=== PATIENT | female | born 1980 | race Caucasian/White ===

== ENCOUNTER 2023-10-18 09:58 | Inpatient (IN) | payer OTHER ==
[~2023-10-18] VITALS: Ht 167.6 cm; Wt 115.0 kg
[2023-10-18] MEDS ORDERED: ESSETAB4 PO (10:15)
[2023-10-18] MEDS ORDERED: MORPHINE 4 MG/ML 1ML VIAL IV ONE (10:30)
[2023-10-18] MEDS ORDERED: ONDANSETRON 4MG 2ML VIAL IV ONE (10:30)
[2023-10-18] MEDS: MORPHINE 4 MG/ML 1ML VIAL IV PRN ×2 (12:03→13:00)
[2023-10-18 12:59] LABS: BASO % 0.2 % (0.0-1.0); EOS % 0.1 % (0.0-3.0); HEMOGLOBIN 12.6 g/dl (12.0-15.5); LYMPH # 1.1 10^3/uL (1.5-5.0); LYMPH % 7.3 % (24.0-44.0); MEAN CORPUSCULAR HEMOGLOBIN 29.8 pg (27.0-33.0); MEAN CORPUSCULAR HGB CONC 34.1 g/dl (32.0-36.5); MEAN CORPUSCULAR VOLUME 87.5 fl (80.0-96.0); MONO # 0.7 10^3/uL (0.0-0.8); MONO % 4.3 % (2.0-8.0); NEUTROPHILS # 13.2 10^3/uL (1.5-8.5); NEUTROPHILS % 87.8 % (36.0-66.0); PLATELET COUNT, AUTOMATED 360 10^3/uL (150-450); RED BLOOD COUNT 4.23 10^6/uL (4.00-5.40)
[2023-10-18] MEDS ORDERED: MED REC IN PROGRESS XX SCH (13:15)
[2023-10-18] MEDS ORDERED: HOME MED LIST COMPLETE! XX SCH (13:15)
[2023-10-18] MEDS ORDERED: fentaNYL 100 MCG/2 ML INJECTION IV PRN ×2 (13:20→18:10)
[2023-10-18] MEDS ORDERED: HYDROMORPHONE HCL 0.5 MG/ 0.5 ML SYRINGE IV PRN (13:20)
[2023-10-18] MEDS ORDERED: ONDANSETRON 4MG 2ML VIAL IV PRN ×2 (13:20→18:10)
[2023-10-18] MEDS ORDERED: oxyCODONE 5MG TAB PO PRN (13:20)
[2023-10-18] MEDS ORDERED: LR 1,000 ML IV SCH ×3 (13:20→18:10)
[2023-10-18 13:35] LABS: BLOOD UREA NITROGEN 14 MG/DL (9-23); CALCIUM LEVEL 8.4 MG/DL (8.5-10.1); CARBON DIOXIDE LEVEL 28 MMOL/L (20-31); CHLORIDE LEVEL 106 MMOL/L (98-107); CREATININE FOR GFR 0.62 MG/DL (0.55-1.30); GLOMERULAR FILTRATION RATE > 60.0 (>58); GLUCOSE, FASTING 116 MG/DL (60-100); POTASSIUM SERUM 4.1 MMOL/L (3.5-5.1); SODIUM LEVEL 138 MMOL/L (136-145)
[2023-10-18 13:53] LABS: HCG, SERUM QUALITATIVE NEGATIVE (NEGATIVE)
[2023-10-18] MEDS ORDERED: MAALOX 30 ML SUSP *UDC PO PRN (14:40)
[2023-10-18] MEDS ORDERED: MOM 30ML SUSPENSION UDC PO PRN (14:40)
[2023-10-18] MEDS ORDERED: LIDOCAINE 2% 100MG/5ML SDV (FOR ANES.) As Ordered ONE (17:15)
[2023-10-18] MEDS ORDERED: MIDAZOLAM INJ 2MG/2ML VIAL As Ordered ONE (17:15)
[2023-10-18] MEDS ORDERED: fentaNYL 100 MCG/2 ML INJECTION As Ordered ONE (17:15)
[2023-10-18] MEDS ORDERED: propofoL 200 MG/20 ML VIAL As Ordered ONE (17:15)
[2023-10-18] MEDS ORDERED: ceFAZolin 2 GM/D5W 50 ML IV BAG As Ordered ONE (17:16)
[2023-10-18] MEDS ORDERED: ACETAMINOPHEN 1000MG 100ML IV BAG As Ordered ONE (17:22)
[2023-10-18] MEDS ORDERED: ONDANSETRON 4MG 2ML VIAL As Ordered ONE (17:32)
[2023-10-18] MEDS ORDERED: HYDROmorphone HCL 2MG/ML 1ML VIAL As Ordered ONE (17:39)
[2023-10-18] MEDS ORDERED: PHENYLephrine 500MCG 5ML (100MCG/ML) SYRINGE As Ordered ONE (17:45)
[2023-10-18] MEDS ORDERED: METOCLOPRAMIDE INJ 10MG/2ML VIAL IV PRN (18:10)
[2023-10-18] MEDS ORDERED: METOCLOPRAMIDE INJ 10MG/2ML VIAL As Ordered ONE (18:30)
[2023-10-18] MEDS: oxyCODONE 5MG TAB PO PRN ×2 (19:08→19:40)
[2023-10-18] MEDS: HYDROMORPHONE HCL 0.5 MG/ 0.5 ML SYRINGE IV PRN ×3 (19:08→19:41)
[2023-10-18 19:48] VITALS: BP 141/85; TEMP 98.1; O2SAT 96
[2023-10-18 20:30] VITALS: BP 116/68; TEMP 97.5; O2SAT 96
[2023-10-18 21:00] VITALS: BP 124/71; TEMP 97.7; O2SAT 97
[2023-10-18 22:00] VITALS: BP 121/72; TEMP 97.3; O2SAT 96
[2023-10-18 23:00] VITALS: BP 121/72; TEMP 97.5; O2SAT 97
[2023-10-19] VITALS (7 sets, daily range): BP systolic 110–126; BP diastolic 62–81; TEMP 97.5–98.8; O2SAT 95–99
[2023-10-19] MEDS ORDERED: PERCOCET 5MG/325MG TAB PO PRN (01:30)
[2023-10-19] MEDS: PERCOCET 5MG/325MG TAB PO PRN ×3 (02:08→14:18)
[2023-10-19] MEDS: ceFAZolin SOD 2 GM in IV 1 EA IV SCH ×3 (02:08→16:45)
[2023-10-19 07:07] LABS: HEMOGLOBIN 12.6 g/dl (12.0-15.5); MEAN CORPUSCULAR HEMOGLOBIN 29.4 pg (27.0-33.0); MEAN CORPUSCULAR HGB CONC 33.2 g/dl (32.0-36.5); MEAN CORPUSCULAR VOLUME 88.8 fl (80.0-96.0); PLATELET COUNT, AUTOMATED 420 10^3/uL (150-450); RED BLOOD COUNT 4.28 10^6/uL (4.00-5.40); WHITE BLOOD COUNT 13.4 10^3/uL (4.0-10.0)
[2023-10-19 07:29] LABS: BLOOD UREA NITROGEN 14 MG/DL (9-23); CALCIUM LEVEL 8.4 MG/DL (8.5-10.1); CARBON DIOXIDE LEVEL 26 MMOL/L (20-31); CHLORIDE LEVEL 103 MMOL/L (98-107); CREATININE FOR GFR 0.66 MG/DL (0.55-1.30); GLOMERULAR FILTRATION RATE > 60.0 (>58); GLUCOSE, FASTING 119 MG/DL (60-100); MAGNESIUM LEVEL 1.9 MG/DL (1.8-2.4); POTASSIUM SERUM 4.5 MMOL/L (3.5-5.1); SODIUM LEVEL 137 MMOL/L (136-145)
[2023-10-19] MEDS: ENOXAPARIN 40MG/0.4ML SYRINGE (J1650 PER 10MG) SC SCH ×2 (11:38→21:19)
[2023-10-19] MEDS: ACETAMINOPHEN TAB 650MG DOSE (2X325MG) PO PRN ×3 (11:49→21:19)
[2023-10-20] MEDS: ACETAMINOPHEN TAB 650MG DOSE (2X325MG) PO PRN ×3 (03:23→13:15)
[2023-10-20 06:11] VITALS: BP 116/70; TEMP 97.5; O2SAT 95
[2023-10-20] MEDS: ENOXAPARIN 40MG/0.4ML SYRINGE (J1650 PER 10MG) SC SCH (08:35)
[2023-10-20] MEDS ORDERED: ACET1TAB55 PO (13:01)
== END 2023-10-20 14:45 | disposition home or self-care (01) | DRG 313 ==
LOC: EDBD 09:58 → M ED 09:58 → M ED INP 14:39 → ENRESERV 15:11 → M MS5PR 19:28
PROVIDERS: ADMIT Student in an Organized Health Care Education/Training Program; ATTEND Family Medicine
PROC: 0QSH06Z Reposition Left Tibia with Intramedullary Internal Fixation Device, Open Approach (ICD-10-PCS; principal; 2023-10-18 14:00)
DX: S82.242A Displaced spiral fracture of shaft of left tibia, initial encounter for closed fracture (principal); F41.9 Anxiety disorder, unspecified; S82.442A Displaced spiral fracture of shaft of left fibula, initial encounter for closed fracture; W00.0XXA Fall on same level due to ice and snow, initial encounter; Y92.89 Other specified places as the place of occurrence of the external cause; Y99.8 Other external cause status; Y93.89 Activity, other specified; R33.9 Retention of urine, unspecified; Z88.0 Allergy status to penicillin

== ENCOUNTER → 2023-10-27 | Outpatient (CLI) | payer OTHER, MEDICAID ==
[~2023-10-27] MED LIST: ACET1TAB55 PO; ESSETAB4 PO
== END ==
LOC: M SOG 08:00
PROVIDERS: ATTEND Orthopaedic Surgery
DX: S82.392A Other fracture of lower end of left tibia, initial encounter for closed fracture (principal); Z96.7 Presence of other bone and tendon implants; Y92.9 Unspecified place or not applicable; Y93.9 Activity, unspecified

== ENCOUNTER → 2023-11-17 | Outpatient (CLI) | payer OTHER | LOC: M SOG 07:54 | PROVIDERS: ATTEND Orthopaedic Surgery | DX: S82.392D Other fracture of lower end of left tibia, subsequent encounter for closed fracture with routine healing (principal) ==

== ENCOUNTER → 2023-12-20 | Outpatient (CLI) | payer OTHER | LOC: M SOG 07:51 | PROVIDERS: ATTEND Orthopaedic Surgery | DX: S82.392A Other fracture of lower end of left tibia, initial encounter for closed fracture (principal) ==

== ENCOUNTER → 2024-03-07 | Outpatient (CLI) | payer OTHER | LOC: M SOG 07:55 | PROVIDERS: ATTEND Orthopaedic Surgery | DX: S82.392A Other fracture of lower end of left tibia, initial encounter for closed fracture (principal); Y92.9 Unspecified place or not applicable; Y93.9 Activity, unspecified ==

== ENCOUNTER → 2024-05-01 | Outpatient (CLI) | payer OTHER | LOC: M SOG 07:54 | PROVIDERS: ATTEND Orthopaedic Surgery | DX: S82.392A Other fracture of lower end of left tibia, initial encounter for closed fracture (principal); Z53.8 Procedure and treatment not carried out for other reasons ==

== ENCOUNTER → 2024-06-07 | Outpatient (CLI) | payer OTHER | LOC: M SOG 11:07 | PROVIDERS: ATTEND Orthopaedic Surgery | DX: S82.392D Other fracture of lower end of left tibia, subsequent encounter for closed fracture with routine healing (principal) ==